=== PATIENT | female | born 1965 | race Caucasian/White ===

== ENCOUNTER 2020-03-31 05:10 | Inpatient (IN) | payer OTHER ==
[~2020-03-31] VITALS: Ht 175.3 cm; Wt 95.5 kg
[~2020-03-31 05:10] MED LIST: GABA-1181 PO; LISI-662 PO; OXYC10TA59 PO; VERA80 PO
[2020-03-31] MEDS ORDERED: DILT120C88 PO (05:16)
[2020-03-31] MEDS ORDERED: PB/HYOSCY/ATR/SCOP/LIDO/MAALOX 55 ML BOTTLE PO ONE (05:45)
[2020-03-31 06:21] LABS: BASOPHILS % (AUTO) 0.6 % (0.0-2.0); EOSINOPHILS % (AUTO) 0.3 % (1.0-6.0); HEMATOCRIT 47.4 % (36-46); HEMOGLOBIN 15.9 g/dL (12.0-16.0); LYMPHOCYTES # (AUTO) 2.1 K/uL (1.0-4.8); LYMPHOCYTES % (AUTO) 11.9 % (22.0-44.0); MEAN CORPUSCULAR HEMOGLOBIN 30.8 pg (26.0-34.0); MEAN CORPUSCULAR HGB CONC 33.6 G/dL (31.0-37.0); MEAN CORPUSCULAR VOLUME 92 fL (80-100); MONOCYTES % (AUTO) 5.7 % (2.0-9.0); NEUTROPHILS # (AUTO) 14.2 K/uL (1.8-7.7); NEUTROPHILS % (AUTO) 81.5 % (40.0-70.0); PLATELET COUNT (AUTO) 247 K/uL (150-450); RED BLOOD CELL COUNT(AUTO) 5.16 MIL/uL (4.00-5.20); RED CELL DISTRIBUTION WIDTH 13.1 % (11.5-14.5)
[2020-03-31 06:23] LABS: APPEARANCE,URINE CLOUDY (CLEAR); BILIRUBIN,URINE NEGATIVE (NEGATIVE); GLUCOSE, URINE (UA) NEGATIVE (NEGATIVE); KETONES,URINE NEGATIVE (NEGATIVE); LEUKOCYTE ESTERASE ,URINE NEGATIVE (NEGATIVE); NITRATE,URINE NEGATIVE (NEGATIVE); OCCULT BLOOD,URINE TRACE (NEGATIVE); PROTEIN,URINE POS 1+ (NEGATIVE); UROBILINOGEN,URINE 0.2 mg/dL (<=1.0)
[2020-03-31] MEDS ORDERED: KETOROLAC TROMETHAMINE 30 MG/ML VIAL IM ONE (06:30)
[2020-03-31 06:36] LABS: ANION GAP 13 mmol/L (8-16); CALCIUM, TOTAL 10.8 mg/dL (8.8-10.5); CARBON DIOXIDE 25 mmol/L (22-29); CHLORIDE 103 mmol/L (98-107); CREATININE 0.88 mg/dL (0.60-1.30); GLOMERULAR FILTR. RATE CALC > 60 mL/min (>60); GLUCOSE,RANDOM 171 mg/dL (70-110); POTASSIUM 3.5 mmol/L (3.5-5.1); SODIUM SERUM 141 mmol/L (136-145); UREA NITROGEN, BLOOD 18 mg/dL (7-18)
[2020-03-31 06:45] LABS: ALANINE AMINOTRANSFERASE 23 U/L (12-78); ALBUMIN 4.1 g/dL (3.4-5.0); ALKALINE PHOSPHATASE 91 U/L (46-116); ASPARTATE AMINOTRANSFERASE 11 U/L (15-37); BILIRUBIN,TOTAL 0.4 mg/dL (0.1-1.0); LIPASE 68 U/L (73-393); TOTAL PROTEIN, SERUM 8.1 g/dL (6.4-8.2)
[2020-03-31 08:19] LABS: BACTERIA,URINE None Seen /HPF (None Seen); WBC,URINE 0-2 /HPF (0-5)
[2020-03-31 08:20] LABS: AMORPHOUS SEDIMENT,UR Many /LPF (None Seen)
[2020-03-31] MEDS ORDERED: PIPERACILLIN/TAZO 3.375 GM/D5W 50 ML IV ONE (10:00)
[2020-03-31] MEDS: PANTOPRAZOLE SODIUM 40 MG/VIAL IVP SCH (10:13)
[2020-03-31] MEDS ORDERED: ONDANSETRON HCL 4 MG/2 ML VIAL IVP PRN (10:15)
[2020-03-31] MEDS ORDERED: ACETAMINOPHEN 325 MG TABLET PO PRN (10:15)
[2020-03-31 11:50] LABS: COVID AG,FIA SOURCE NASOPHARYNGEAL
[2020-03-31] MEDS ORDERED: SODIUM CHLORIDE 0.9% 1,000 ML ONE (11:57)
[2020-03-31] MEDS ORDERED: FentaNYL CITRATE-PF 100 MCG/2 ML VIAL IVP PRN (12:00)
[2020-03-31] MEDS ORDERED: HYDROmorphone 2 MG/ML SYRINGE IVP PRN (12:00)
[2020-03-31] MEDS: SODIUM CHLORIDE 0.45% 1,000 ML IV SCH (12:15)
[2020-03-31] MEDS ORDERED: RINGERS SOLUTION,LACTATED 1,000 ML IV ONE ×3 (13:00→14:58)
[2020-03-31] MEDS ORDERED: BUPIVACAINE 0.25%/EPI 1:200,000/PF 10 ML VIAL ONE (13:52)
[2020-03-31] MEDS ORDERED: SUGAMMADEX SODIUM 200 MG/2 ML VIAL IVP ONE (14:57)
[2020-03-31 16:49] VITALS: BP 149/80
[2020-03-31] MEDS: HYDROCODONE/ACETAMINOPHEN 5-325 MG TABLET PO PRN ×2 (17:05→22:19)
[2020-03-31] MEDS: OXYGEN THERAPY IH SCH (19:50)
[2020-03-31] MEDS: DOCUSATE SODIUM 100 MG CAPSULE PO SCH (19:50)
[2020-03-31] MEDS: PIPERACILLIN/TAZO 3.375 GM/D5W 50 ML IV SCH (19:50)
[2020-03-31 20:36] VITALS: BP 147/66
[2020-04-01] MEDS: PIPERACILLIN/TAZO 3.375 GM/D5W 50 ML IV SCH ×2 (02:12→08:17)
[2020-04-01] MEDS: MORPHINE SULFATE 2 MG/ML SYRINGE IVP PRN ×2 (02:19→08:20)
[2020-04-01] MEDS: SODIUM CHLORIDE 0.45% 1,000 ML IV SCH (02:26)
[2020-04-01 05:14] VITALS: BP 148/71
[2020-04-01] MEDS: HYDROCODONE/ACETAMINOPHEN 5-325 MG TABLET PO PRN ×2 (06:39→11:37)
[2020-04-01] MEDS: OXYGEN THERAPY IH SCH (08:00)
[2020-04-01 08:07] VITALS: BP 146/75
[2020-04-01] MEDS: PANTOPRAZOLE SODIUM 40 MG/VIAL IVP SCH (08:18)
[2020-04-01] MEDS: DOCUSATE SODIUM 100 MG CAPSULE PO SCH (08:18)
[2020-04-01 10:30] LABS: BASOPHILS % (AUTO) 0.4 % (0.0-2.0); EOSINOPHILS % (AUTO) 0 % (1.0-6.0); HEMATOCRIT 40.8 % (36-46); HEMOGLOBIN 13.4 g/dL (12.0-16.0); LYMPHOCYTES % (AUTO) 12.9 % (22.0-44.0); MEAN CORPUSCULAR HEMOGLOBIN 30.6 pg (26.0-34.0); MEAN CORPUSCULAR HGB CONC 32.7 G/dL (31.0-37.0); MEAN CORPUSCULAR VOLUME 93 fL (80-100); MONOCYTES # (AUTO) 0.8 K/uL (0.1-1.0); MONOCYTES % (AUTO) 5.2 % (2.0-9.0); NEUTROPHILS # (AUTO) 12.9 K/uL (1.8-7.7); NEUTROPHILS % (AUTO) 81.5 % (40.0-70.0); PLATELET COUNT (AUTO) 224 K/uL (150-450); RED BLOOD CELL COUNT(AUTO) 4.37 MIL/uL (4.00-5.20); RED CELL DISTRIBUTION WIDTH 13.1 % (11.5-14.5)
[2020-04-01 10:50] LABS: ALBUMIN 3.2 g/dL (3.4-5.0); BILIRUBIN,TOTAL 0.7 mg/dL (0.1-1.0); CALCIUM, TOTAL 9.2 mg/dL (8.8-10.5); CREATININE 1.21 mg/dL (0.60-1.30); POTASSIUM 3.5 mmol/L (3.5-5.1); TOTAL PROTEIN, SERUM 6.6 g/dL (6.4-8.2)
[2020-04-01] MEDS ORDERED: ACET-2865 PO (11:23)
[2020-04-01] MEDS ORDERED: CIPR-278 PO (11:23)
[2020-04-01] MEDS ORDERED: METR500 PO (11:23)
[2020-04-01 12:04] VITALS: BP 142/76
[2020-04-01] MEDS ORDERED: NORCO 5/325 PO (12:29)
== END 2020-04-01 13:35 | disposition home or self-care (01) | DRG 418 ==
LOC: EMS 05:17 → 6N 11:32
PROVIDERS: ADMIT Internal Medicine; ATTEND Internal Medicine
PROC: 0FT44ZZ Resection of Gallbladder, Percutaneous Endoscopic Approach (ICD-10-PCS; principal; 2020-03-31 13:30)
DX: K80.62 Calculus of gallbladder and bile duct with acute cholecystitis without obstruction (principal); K82.1 Hydrops of gallbladder; E66.9 Obesity, unspecified; F17.210 Nicotine dependence, cigarettes, uncomplicated; Z20.828 Contact with and (suspected) exposure to other viral communicable diseases; I10 Essential (primary) hypertension; G89.29 Other chronic pain; R73.9 Hyperglycemia, unspecified; K82.8 Other specified diseases of gallbladder; Z82.49 Family history of ischemic heart disease and other diseases of the circulatory system; Z83.3 Family history of diabetes mellitus; Z68.31 Body mass index [BMI] 31.0-31.9, adult; Z88.2 Allergy status to sulfonamides; Z79.899 Other long term (current) drug therapy
CPT/HCPCS: 76700; 83036; 87426; 88304; 93005; C9113; G0378; J1885; J2270; J2543; J3490; J7030; J7120

== ENCOUNTER 2022-03-11 16:35 | Emergency (ER) | payer OTHER ==
[~2022-03-11] VITALS: Ht 172.7 cm; Wt 86.4 kg
[~2022-03-11 16:35] MED LIST changes: +ACET-2247 PO; +CIPR-278 PO; +DILT-94 PO; -LISI-662 PO; +LISI-894 PO; +METR500 PO; +NORCO 5/325 PO; -VERA80 PO; +VERA80TA11 PO
[2022-03-11 16:37] VITALS: BP 178/98
[2022-03-11] MEDS ORDERED: DULO-114 PO (16:43)
[2022-03-11] MEDS ORDERED: CHLO25TA3 PO (16:43)
== END 2022-03-12 00:40 | disposition home or self-care (01) ==
LOC: EMS 17:17
DX: S09.90XA Unspecified injury of head, initial encounter (principal); S93.402A Sprain of unspecified ligament of left ankle, initial encounter; I10 Essential (primary) hypertension; F17.210 Nicotine dependence, cigarettes, uncomplicated; M54.2 Cervicalgia; G89.29 Other chronic pain; Z98.890 Other specified postprocedural states; Z88.2 Allergy status to sulfonamides; Z88.8 Allergy status to other drugs, medicaments and biological substances; W18.39XA Other fall on same level, initial encounter; Y93.89 Activity, other specified; Y92.89 Other specified places as the place of occurrence of the external cause; Y99.8 Other external cause status
CPT/HCPCS: 29540; 70450; 72125; 99284

== ENCOUNTER 2024-09-12 10:12 | Emergency (ER) | payer OTHER, MEDICAID ==
[~2024-09-12] VITALS: Ht 180.3 cm; Wt 77.3 kg
[~2024-09-12 10:12] MED LIST changes: +CHLO25TA3 PO; +DULO30CA89 PO
[2024-09-12 10:32] VITALS: BP 122/97; PULSE 84; RESP 16; TEMP 97.9; O2SAT 98
[2024-09-12] MEDS ORDERED: CHLO50TA PO (11:42)
[2024-09-12] MEDS ORDERED: PREG100C56 PO (11:42)
[2024-09-12] MEDS ORDERED: HYDR-4268 TP (11:42)
[2024-09-12] MEDS ORDERED: PARO-37 PO (11:42)
[2024-09-12] MEDS ORDERED: OXYC10TA48 PO (11:42)
[2024-09-12] MEDS ORDERED: CLIN30GE22 TP (11:42)
[2024-09-12] MEDS ORDERED: ALLO300T2 PO (11:42)
[2024-09-12] MEDS: LIDOCAINE 5% TRANSDERMAL PATCH TD ONE (11:49)
[2024-09-12] MEDS: methocarbamoL 500 MG TABLET PO ONE (11:50)
[2024-09-12] MEDS: KETOROLAC TROMETHAMINE 60 MG/2 ML VIAL IM ONE (11:50)
[2024-09-12] MEDS ORDERED: LIDO-57 TP (14:59)
[2024-09-12] MEDS ORDERED: OXYC-38 PO (14:59)
[2024-09-12] MEDS ORDERED: IBUP-1492 PO (14:59)
[2024-09-12] MEDS ORDERED: METH-659 PO (14:59)
== END 2024-09-12 15:16 | disposition home or self-care (01) ==
LOC: EMS 10:12
DX: S39.012A Strain of muscle, fascia and tendon of lower back, initial encounter (principal); I10 Essential (primary) hypertension; F17.210 Nicotine dependence, cigarettes, uncomplicated; G89.29 Other chronic pain; Z98.890 Other specified postprocedural states; Z88.1 Allergy status to other antibiotic agents; Z88.2 Allergy status to sulfonamides; Z79.899 Other long term (current) drug therapy; X58.XXXA Exposure to other specified factors, initial encounter; Y93.89 Activity, other specified; Y92.89 Other specified places as the place of occurrence of the external cause; Y99.8 Other external cause status
CPT/HCPCS: 99283; 96372; J1885